=== PATIENT | female | born 1950 | race Caucasian/White ===

== ENCOUNTER → 2016-09-21 | Outpatient (CLI) | payer OTHER ==
[~2016-09-21] MED LIST: ALBU8.5H3 INH; ARIP5TAB6 PO; ATOR10TA9 PO; CHOL200012 PO; LANS15CA5 PO; LEVO75TA5 PO; LISI-167 PO; OMNIPAQUE 350 MG/ML, 100ML BOTTLE ONE; SERT50TA5 PO; TRAZ100T15 PO
== END | disposition home or self-care (01) ==
LOC: CFH 12:58
PROVIDERS: ATTEND Family Medicine
DX: R06.02 Shortness of breath (principal); R07.9 Chest pain, unspecified
CPT/HCPCS: 71275; Q9967

== ENCOUNTER → 2018-06-06 | Outpatient (CLI) | payer MEDICARE ==
[~2018-06-06] MED LIST changes: -ALBU8.5H3 INH; +ALBU8.5H8 INH; +ARIP5TAB13 PO; -ARIP5TAB6 PO; -CHOL200012 PO; +CHOL200074 PO; -OMNIPAQUE 350 MG/ML, 100ML BOTTLE ONE; +SERT50TA28 PO; -SERT50TA5 PO; +TRAZ-137 PO; -TRAZ100T15 PO
== END | disposition home or self-care (01) ==
LOC: CARD 10:37
PROVIDERS: ATTEND Family Medicine
DX: R00.2 Palpitations (principal)
CPT/HCPCS: 93225; 93226

== ENCOUNTER 2018-09-13 08:17 | Outpatient (CLI) | payer MEDICARE | END 2018-09-13 23:59 | disposition home or self-care (01) | LOC: RAD 08:17 | PROVIDERS: ATTEND Nurse Practitioner Primary Care | DX: K22.8 Other specified diseases of esophagus (principal); R60.0 Localized edema; J45.909 Unspecified asthma, uncomplicated; F32.9 Major depressive disorder, single episode, unspecified; K21.9 Gastro-esophageal reflux disease without esophagitis; E78.5 Hyperlipidemia, unspecified; E03.9 Hypothyroidism, unspecified; G47.30 Sleep apnea, unspecified; M47.819 Spondylosis without myelopathy or radiculopathy, site unspecified; R42 Dizziness and giddiness; Z88.6 Allergy status to analgesic agent; Z88.5 Allergy status to narcotic agent; Z88.8 Allergy status to other drugs, medicaments and biological substances; Z79.4 Long term (current) use of insulin; Z98.890 Other specified postprocedural states; Z87.891 Personal history of nicotine dependence; Z72.89 Other problems related to lifestyle | CPT/HCPCS: 74241 ==

== ENCOUNTER 2018-12-31 11:27 | Outpatient (CLI) | payer MEDICARE ==
[2018-12-31] MEDS ORDERED: RANI150T4 PO (13:05)
[2018-12-31] MEDS ORDERED: LOSA50TA14 PO (13:05)
[2018-12-31] MEDS ORDERED: OXYB5TAB10 PO (13:05)
[2018-12-31 13:07] LABS: BASOPHILS # (AUTO) 0.03 x10^3/uL (0-0.1); BASOPHILS % (AUTO) 1 % (0-1); EOSINOPHILS # (AUTO) 0.21 x10^3/uL (0-0.4); EOSINOPHILS % (AUTO) 3 % (1-7); LYMPHOCYTES # (AUTO) 1.34 x10^3/uL (1-3.4); LYMPHOCYTES % (AUTO) 21 % (22-44); MD NO; MEAN CORPUSCULAR HEMOGLOBIN 29.8 pg (27.0-34.8); MEAN CORPUSCULAR HGB CONC 32.7 g/dL (32.4-35.8); MEAN CORPUSCULAR VOLUME 91.1 fL (80-100); MONOCYTES # (AUTO) 0.33 x10^3/uL (0.2-0.8); MONOCYTES % (AUTO) 5 % (2-9); NEUTROPHILS # (AUTO) 4.47 x10^3/uL (1.8-6.8); NEUTROPHILS % (AUTO) 70 % (42-75); PLATELET COUNT 371 x10^3/uL (130-400); RED BLOOD COUNT 4.45 x10^6/uL (3.82-5.3); RED CELL DISTRIBUTION WIDTH 15.5 % (9.6-15.2)
[2018-12-31] MEDS ORDERED: CHOL200024 PO (13:12)
[2018-12-31] MEDS ORDERED: WOMENS VITAMIN PO (13:12)
[2018-12-31] MEDS ORDERED: MOME110A INH (13:12)
[2018-12-31] MEDS ORDERED: [UNRECOGNIZED DRUG - REMARK] PO (13:12)
[2018-12-31] MEDS ORDERED: [UNRECOGNIZED DRUG - OTHER] PO (13:12)
[2018-12-31] MEDS ORDERED: FURO20TA3 PO (13:12)
[2018-12-31] MEDS ORDERED: ASPI-496 PO (13:12)
[2018-12-31] MEDS ORDERED: POTASSIUM CHLORIDE PO (13:12)
[2018-12-31] MEDS ORDERED: FLUTICASONE NAS (13:12)
[2018-12-31 13:18] LABS: ALBUMIN 3.8 g/dL (3.4-5.0); ANION GAP 5 mmol/L (5-15); CALCIUM 9.2 mg/dL (8.5-10.1); CHLORIDE 105 mmol/L (98-107)
[2018-12-31 13:22] LABS: ALANINE AMINOTRANSFERASE 23 U/L (12-78); ALKALINE PHOSPHATASE 121 U/L (45-117); BILIRUBIN,TOTAL 0.5 mg/dL (0.2-1.0); CREATININE 0.96 mg/dL (0.55-1.02); TOTAL PROTEIN 8.3 g/dL (6.4-8.2)
== END 2018-12-31 23:59 | disposition home or self-care (01) ==
LOC: STAR 11:27
PROVIDERS: ATTEND Orthopaedic Surgery
DX: Z01.818 Encounter for other preprocedural examination (principal); M17.11 Unilateral primary osteoarthritis, right knee; M18.12 Unilateral primary osteoarthritis of first carpometacarpal joint, left hand; J45.909 Unspecified asthma, uncomplicated; G40.909 Epilepsy, unspecified, not intractable, without status epilepticus; J43.9 Emphysema, unspecified; G47.30 Sleep apnea, unspecified; E11.9 Type 2 diabetes mellitus without complications; Z85.841 Personal history of malignant neoplasm of brain; Z85.038 Personal history of other malignant neoplasm of large intestine; Z85.118 Personal history of other malignant neoplasm of bronchus and lung; Z85.43 Personal history of malignant neoplasm of ovary; Z85.028 Personal history of other malignant neoplasm of stomach; Z85.3 Personal history of malignant neoplasm of breast; Z85.05 Personal history of malignant neoplasm of liver; Z85.89 Personal history of malignant neoplasm of other organs and systems; I11.0 Hypertensive heart disease with heart failure; I50.9 Heart failure, unspecified; I25.2 Old myocardial infarction; Z87.891 Personal history of nicotine dependence
CPT/HCPCS: 36415; 80053; 85025; 87081; 87147; 93005

== ENCOUNTER 2019-01-14 06:44 | Day surgery (SDC) | payer MEDICARE ==
[~2019-01-14] VITALS: Ht 157.5 cm; Wt 88.7 kg
[~2019-01-14 06:44] MED LIST changes: +ASPI-496 PO; +CHOL200024 PO; +EPINEPHRINE 1 MG/ML, 1ML ONE; +FLUTICASONE NAS; +FURO20TA3 PO; +KETOROLAC 60 MG/2 ML ONE; +LOSA50TA14 PO; +MOME110A INH; +OXYB5TAB10 PO; +POTASSIUM CHLORIDE PO; +RANI150T4 PO; +ROPIvacaine/PF 0.2%, 20 ML ONE; +SODIUM CHLORIDE 0.9% 50 ML ONE; +TRANEXAMIC ACID 100 MG/ML, 10ML ONE; +WOMENS VITAMIN PO; +[UNRECOGNIZED DRUG - OTHER] PO; +[UNRECOGNIZED DRUG - REMARK] PO
[2019-01-14 07:14] VITALS: BP 137/68
[2019-01-14] MEDS ORDERED: LACTATED RINGERS 1,000 ML IV SCH (07:16)
[2019-01-14] MEDS ORDERED: GABAPENTIN 300 MG CAPSULE PO ONE (07:30)
[2019-01-14] MEDS ORDERED: ACETAMINOPHEN 500 MG TABLET PO ONE (07:30)
[2019-01-14] MEDS ORDERED: FENTANYL PF 100 MCG/2ML ONE (08:28)
[2019-01-14] MEDS ORDERED: MIDAZOLAM 1 MG/ML, 2ML ONE (08:55)
[2019-01-14] MEDS ORDERED: ONDANSETRON 2MG/ML, 2ML ONE (08:57)
[2019-01-14] MEDS ORDERED: DEXAMETHASONE 4 MG/ML, 1ML ONE (08:57)
[2019-01-14] MEDS ORDERED: CEFAZOLIN 1,000 MG ONE (08:57)
[2019-01-14] MEDS ORDERED: LABETALOL 5MG/ML, 20ML IV PRN (09:30)
[2019-01-14] MEDS ORDERED: LORazepam 2 MG/ML, 1ML IVPush PRN (09:30)
[2019-01-14] MEDS ORDERED: hydrALAzine 20 MG/ML, 1ML IV PRN (09:30)
[2019-01-14] MEDS ORDERED: HYDROmorphone 2 MG/ML, 1ML IVPush PRN (09:30)
[2019-01-14] MEDS ORDERED: ONDANSETRON ODT 8 MG PO PRN (09:30)
[2019-01-14] MEDS ORDERED: ONDANSETRON 2MG/ML, 2ML IV PRN (09:30)
[2019-01-14] MEDS ORDERED: FENTANYL PF 100 MCG/2ML IV PRN (09:30)
[2019-01-14] MEDS ORDERED: PROMETHAZINE 25 MG SUPP PR PRN (09:30)
[2019-01-14] MEDS ORDERED: PROMETHAZINE 25 MG/ML, 1ML IV PRN (09:30)
[2019-01-14] MEDS ORDERED: OXYcodone 5 MG/5 ML ORAL.SOL UDC PO PRN (09:30)
[2019-01-14] MEDS ORDERED: PROPOFOL 50 ML ONE (09:38)
[2019-01-14] MEDS: D5%-0.45% NACL 1,000 ML IV SCH ×2 (10:40→20:08)
[2019-01-14] MEDS ORDERED: ONDANSETRON 2MG/ML, 2ML IVPush PRN (11:00)
[2019-01-14] MEDS ORDERED: ZOLPIDEM 5MG TABLET PO PRN (11:00)
[2019-01-14] MEDS ORDERED: DIPHENHYDRAMINE 25 MG CAPSULE PO PRN (11:00)
[2019-01-14] MEDS ORDERED: OXYcodone IR 5MG TABLET PO PRN (11:00)
[2019-01-14] MEDS ORDERED: MORPHINE SULFATE 4 MG/ML, 1ML IVPush PRN (11:00)
[2019-01-14] MEDS ORDERED: PROMETHAZINE 12.5 MG SUPP PR PRN (11:00)
[2019-01-14] MEDS ORDERED: TRANEXAMIC ACID 1,000 MG in SODIUM CHLORIDE 0.9% 100 ML IVPB ONE (11:00)
[2019-01-14] MEDS ORDERED: MAGNESIUM HYDROXIDE 8%, 30ML UDC PO PRN (11:00)
[2019-01-14] MEDS ORDERED: ALUMINUM/MAG/SIMETHICONE 30 ML UDC PO PRN (11:00)
[2019-01-14] MEDS ORDERED: ONDANSETRON 4 MG TABLET PO PRN (11:00)
[2019-01-14 12:00] VITALS: BP 100/50
[2019-01-14] MEDS: ACETAMINOPHEN 325 MG TABLET PO SCH ×3 (12:40→20:07)
[2019-01-14] MEDS: KETOROLAC 30 MG/1 ML IV SCH ×2 (12:40→20:08)
[2019-01-14 13:05] VITALS: BP 122/56
[2019-01-14] MEDS: OXYcodone IR 5MG TABLET PO PRN ×3 (13:30→23:15)
[2019-01-14] MEDS: CEFAZOLIN PMX 1GM/50ML 50 ML IVPB SCH (16:46)
[2019-01-14] MEDS: ASPIRIN 81 MG TABLET EC PO SCH (18:11)
[2019-01-14 19:31] VITALS: BP 118/74
[2019-01-14] MEDS: DOCUSATE 100 MG CAPSULE PO SCH (20:08)
[2019-01-14] MEDS ORDERED: LOSARTAN 25MG TABLET PO SCH (21:00)
[2019-01-14] MEDS ORDERED: ATORVASTATIN 20 MG TABLET PO SCH (21:00)
[2019-01-14] MEDS ORDERED: OXYBUTYNIN CHLORIDE 5 MG TABLET PO SCH (21:00)
[2019-01-14] MEDS: FAMOTIDINE 20 MG TABLET PO SCH (21:15)
[2019-01-14] MEDS ORDERED: ASMANEX HOMEINH PRN (21:30)
[2019-01-15 00:15] VITALS: BP 112/69
[2019-01-15] MEDS: ACETAMINOPHEN 325 MG TABLET PO SCH ×2 (01:01→05:23)
[2019-01-15] MEDS: CEFAZOLIN PMX 1GM/50ML 50 ML IVPB SCH (01:03)
[2019-01-15 04:25] VITALS: BP 117/64
[2019-01-15] MEDS: ASPIRIN 81 MG TABLET EC PO SCH (05:23)
[2019-01-15] MEDS: KETOROLAC 30 MG/1 ML IV SCH (05:24)
[2019-01-15] MEDS: D5%-0.45% NACL 1,000 ML IV SCH ×2 (05:27→08:11)
[2019-01-15] MEDS ORDERED: LEVOTHYROXINE 88 MCG TABLET PO SCH (06:00)
[2019-01-15 07:09] VITALS: BP 110/64
[2019-01-15] MEDS: FAMOTIDINE 20 MG TABLET PO SCH (08:08)
[2019-01-15] MEDS: DOCUSATE 100 MG CAPSULE PO SCH (08:08)
[2019-01-15] MEDS ORDERED: OXYC5TAB3 PO (08:55)
[2019-01-15] MEDS ORDERED: FUROSEMIDE 20 MG TABLET PO SCH (09:00)
[2019-01-15] MEDS ORDERED: MULTIVITAMINS/MINERALS TABLET PO SCH (09:00)
[2019-01-15] MEDS ORDERED: SERTRALINE 50MG TABLET PO SCH (09:00)
[2019-01-15] MEDS ORDERED: ARIPIPRAZOLE 5 MG TABLET PO SCH (09:00)
[2019-01-15 10:52] VITALS: BP 112/68
== END 2019-01-15 15:25 | disposition home or self-care (01) ==
LOC: OUT 06:44 → UNDOADMOB 10:40 → ORIP 10:40 → 4NE 11:57 → ORIP 11:57 → 4NE 01-15 10:51 → DCLOUNGE 01-15 10:51 → UNDODISOB 01-15 11:13 → OUT 01-15 15:25
PROVIDERS: ATTEND Orthopaedic Surgery
DX: M17.0 Bilateral primary osteoarthritis of knee (principal); M21.161 Varus deformity, not elsewhere classified, right knee; M25.761 Osteophyte, right knee; I10 Essential (primary) hypertension; I73.9 Peripheral vascular disease, unspecified; J45.909 Unspecified asthma, uncomplicated; K21.9 Gastro-esophageal reflux disease without esophagitis; M81.0 Age-related osteoporosis without current pathological fracture; G47.30 Sleep apnea, unspecified; Z72.89 Other problems related to lifestyle; Z79.82 Long term (current) use of aspirin; Z79.890 Hormone replacement therapy; Z79.1 Long term (current) use of non-steroidal anti-inflammatories (NSAID); Z79.899 Other long term (current) drug therapy; Z87.891 Personal history of nicotine dependence; Z88.8 Allergy status to other drugs, medicaments and biological substances; Z91.030 Bee allergy status; Z90.710 Acquired absence of both cervix and uterus; Z90.722 Acquired absence of ovaries, bilateral; Z98.890 Other specified postprocedural states; Z82.3 Family history of stroke
CPT/HCPCS: 27447; 64447; 73560; 96365; 96366; 96375; 96376; 97110; 97116; 97162; 97530; C1713; C1776; J0171; J0690; J1100; J1885; J2250; J2405; J2704; J2795; J3010; J7120; G0378

== ENCOUNTER 2020-03-12 09:38 | Outpatient (CLI) | payer MEDICARE ==
[~2020-03-12 09:38] MED LIST changes: -EPINEPHRINE 1 MG/ML, 1ML ONE; -KETOROLAC 60 MG/2 ML ONE; +OXYC5TAB3 PO; -ROPIvacaine/PF 0.2%, 20 ML ONE; -SODIUM CHLORIDE 0.9% 50 ML ONE; -TRANEXAMIC ACID 100 MG/ML, 10ML ONE; -TRAZ-137 PO; +TRAZ-175 PO
== END 2020-03-12 23:59 | disposition home or self-care (01) ==
LOC: CARD 09:38
PROVIDERS: ATTEND Internal Medicine
DX: Z02.9 Encounter for administrative examinations, unspecified (principal)

== ENCOUNTER → 2020-03-31 | Outpatient (CLI) | payer MEDICARE ==
[~2020-03-31] MED LIST changes: -OXYC5TAB3 PO; +OXYC5TAB98 PO
== END | disposition home or self-care (01) ==
LOC: CFH 10:45
PROVIDERS: ATTEND Internal Medicine
DX: I08.3 Combined rheumatic disorders of mitral, aortic and tricuspid valves (principal); R06.00 Dyspnea, unspecified
CPT/HCPCS: 93306

== ENCOUNTER → 2020-06-23 | Outpatient (CLI) | payer MEDICARE ==
[~2020-06-23] MED LIST changes: +REGADENOSON 0.4 MG/5 ML SYRINGE ONE
== END | disposition home or self-care (01) ==
LOC: CFH 07:40
PROVIDERS: ATTEND Internal Medicine
DX: R06.00 Dyspnea, unspecified (principal)
CPT/HCPCS: 78452; 93017; A9502; J2785

== ENCOUNTER → 2020-09-10 | Outpatient (CLI) | payer MEDICARE ==
[~2020-09-10] MED LIST changes: -REGADENOSON 0.4 MG/5 ML SYRINGE ONE
== END | disposition home or self-care (01) ==
LOC: CFH 09:28
PROVIDERS: ATTEND Nurse Practitioner
DX: Z13.820 Encounter for screening for osteoporosis (principal); N95.8 Other specified menopausal and perimenopausal disorders; M85.80 Other specified disorders of bone density and structure, unspecified site
CPT/HCPCS: 77080